=== PATIENT | female | born 1945 | race Caucasian/White ===

== ENCOUNTER 2020-10-11 14:44 | Outpatient (CLI) | payer OTHER, SELFPAY ==
--- NOTE | ~2020-10-11 | MM_ITS ---
EXAMINATION: MM screening [facility] BI w lauren HISTORY: Screening mammogram TECHNIQUE: Craniocaudal and mediolateral oblique 3-D tomosynthesis images were obtained and synthetic 2-D images were generated. CAD analysis was submitted and interpreted. COMPARISON: 03/05/2019, 10/07/2017, 03/08/2016 BREAST PARENCHYMAL COMPOSITION: There are scattered areas of fibroglandular density. FINDINGS: Scattered benign-appearing calcifications are present. There is no evidence of suspicious m ass, calcification, or architectural distortion to suggest malignancy in either breast. There has bee n no suspicious interval change. IMPRESSION: 1. No mammographic evidence of malignancy. 2. Recommend routine screening mammography in one year. BI-RADS Category 2: Benign finding(s). Reviewed, dictated and finalized at location A. EAU REPORT DEVELOPER
== END 2020-10-11 14:45 | disposition home or self-care (01) ==
PROVIDERS: PCP Emergency Medicine; Visit Provider Obstetrics & Gynecology
DX: Z12.31 Encounter for screening mammogram for malignant neoplasm of breast (principal)
CPT/HCPCS: 77063; 77067

== ENCOUNTER 2022-06-29 09:31 | Outpatient (CLI) | payer OTHER, SELFPAY ==
--- NOTE | ~2022-06-29 | MM_ITS ---
EXAMINATION: MM screening [facility] BI w lauren HISTORY: Screening mammogram TECHNIQUE: Craniocaudal and mediolateral oblique 3-D tomosynthesis images were obtained and synthetic 2-D images were generated. CAD analysis was submitted and interpreted. COMPARISON: 10/11/2020, 03/05/2019, 09/27/2017 bilateral screening mammogram examinations BREAST PARENCHYMAL COMPOSITION: There are scattered areas of fibroglandular density. FINDINGS: There are scattered bilateral benign calcifications. There is no evidence of suspicious mas s, calcification, or architectural distortion to suggest malignancy in either breast. There has been no suspicious interval change. IMPRESSION: 1. No mammographic evidence of malignancy. 2. Recommend routine screening mammography in one year. BI-RADS Category 2: Benign finding(s). Reviewed, dictated and finalized at location A. E TECHNICIAN
--- NOTE | ~2022-06-29 | XR_ITS ---
EXAMINATION: XR lumbar spine 2-3V DATE: 06/29/2022 10:18 INDICATION: Unspecified osteoarthritis TECHNIQUE: Anteroposterior and lateral views of the lumbar spine, and cone-down lateral view of the l umbosacral junction were obtained. COMPARISON: None. FINDINGS: There are 4 mm of anterolisthesis of L4 on L5. There is no fracture. The vertebral body hei ghts are normal. There is severe loss of intervertebral disc space height at L5-S1. There is severe f acet joint osteoarthritis of the lower lumbar spine. Phleboliths are noted in the pelvis. There is mo derate osteoarthritis of the hips. A moderate volume of colonic stool is present. Small degenerative osteophytes project from the anterior endplates of multiple vertebral bodies. IMPRESSION: 1. Severe lumbar spondylosis at L5-S1 and mild spondylosis throughout the remainder of the lumbar spi ne without acute findings. Reviewed, dictated and finalized at location B. GE FISHERMAN IMPRESSION: 1. Severe lumbar spondylosis at L5-S1 and mild spondylosis throughout the remai nder of the lumbar spine without acute findings.
== END 2022-06-29 09:32 | disposition home or self-care (01) ==
LOC: ANHIMG 09:32
PROVIDERS: PCP Emergency Medicine; Visit Provider Emergency Medicine
DX: Z12.31 Encounter for screening mammogram for malignant neoplasm of breast (principal); M47.897 Other spondylosis, lumbosacral region
CPT/HCPCS: 72100; 77063; 77067

== ENCOUNTER 2022-08-02 15:15 | Outpatient (RCR) | payer OTHER, SELFPAY ==
--- NOTE | 2022-07-25 09:59 | PTOPEVAL1 ---
Assessment and note entered by Katie Julien, PT Evaluation Information Assessment Status Evaluation Diagnosis osteoarthritis--lumbar & hips Onset 3-4 months ago Subjective Information gradual increase in back pain over time; no trauma or injury to back but do lift husbands' w/c into the car, full w/c with armrests; does not do any fitness exercises or back stretches; Reported Pain Level Pain Score Self Report Additional Pain Score Comments pain range 0-4/10 in lumbar area; dull pain, at rest--no pain, when go sit to stand feel like have to stand up and stretch before start walking; hard to roll over in bed; is able to sleep through the night; sleep on back or sides, have CPAP; decrease pain by moving around, ibuprofen PRN; have not used heat/ice--instructed to use heat PRN ; walking is OK; Assessment PT Clinical Summary Patsy has the diagnosis of OA- lumbar spine and hips. --per xray report: severe facet OA, anterolisthesis L 4 on 5 and decreased disc height , and mod OA hips. She reports issues with back pain, increased few months ago. She has been lifting her 's w/c in/out of the car and she does not do any fitness exercises or stretches . Self assessment Oswestry score of 20% limitation in activity level. With the evaluation, she has poor posturing of her trunk and hips--in standing and sitting; weakness throughout trunk and hips. Flexibility with decreased B hip IR and R piriformis tightness. Skilled PT services are indicated for modalities PRN for pain control, therapeutic exercises to increase strength and flexibility of trunk and hips, with education for HEP and posture, and pain management. And to include lifting education-- for her 's w/c into car. Plan of Care Interventions Electrical Stimulation,Hot Pack/Cold Pack,Manual Therapy,Neuro Re-education,Patient/Caregiver Education,Therapeutic Activities,Therapeutic Exercise,Ultrasound PT Services Indicated Yes Treatment Frequency and 2x/wk for 4 weeks Duration These treatments will address the objective and functional deficits as defined above. The patient will be advanced safely and appropriately in order for the patient to progress towards his/her prior level of function. Additional exercises will be introduced and as well as a comprehensive home exercise program upon discharge, if needed, ?to ensure carryover of functional gains achieved in the clin
--- NOTE | 2022-08-10 10:39 | PCPTNOTE ---
pt did not show for today's appt
--- NOTE | 2022-09-17 10:31 | PCPTNOTE ---
PHYSICAL THERAPY DISCHARGE 09-17-22 Attending Provider: Levi Ferrer MD Patient:Patsy Bhandari Date of :1945 Mrs. Bhandari has not returned for any further treatments since 08/02/2022, therefore she will be discharged at this time. She received 3 PT sessions, from July 25 to , for the diagnosis of arthritis of lumbar and hips. She then stopped attending. The goals were not addressed. Thank you for referring Patsy to [facility].
== END 2022-09-18 09:09 | disposition home or self-care (01) ==
LOC: ANHPT 15:15
PROVIDERS: PCP Emergency Medicine; Visit Provider Emergency Medicine
DX: M19.90 Unspecified osteoarthritis, unspecified site (principal)
CPT/HCPCS: 97110; 97161

== ENCOUNTER 2024-10-21 11:19 | Outpatient (CLI) | payer OTHER, SELFPAY ==
--- NOTE | ~2024-10-21 | XR_ITS ---
XR hip RT min 2V Ordering provider: Levi Ferrer MD History: . M25.551 - Pain in right hip/NONTRAUMA PAIN . Comparison: None. FINDINGS: BONES: No acute fracture or dislocation. Lucency and irregularity in the greater trochanter is seen most likely degenerative. HIP JOINT SPACES: Slight narrowing of the joint space. SACROILIAC JOINT SPACES/LUMBAR SPINE: The sacroiliac joint spaces are normal. Mild degenerative steele es of the visualized lower lumbar spine. PUBIC SYMPHYSIS: Normal. SOFT TISSUES: Normal. IMPRESSION: No definite acute osseous abnormality pelvis and right hip. Lucency in the greater trochanter most li jessica degenerative. Follow-up advised. Mild to moderate osteoarthritic changes of the right hip. Reviewed, dictated and finalized at location A. ENTRY PROCESSOR IMPRESSION: No definite acute osseous abnormality pelvis and right hip. Lucency in the grea ter trochanter most likely degenerative. Follow-up advised. Mild to moderate osteoarthritic changes of the right hip.
--- NOTE | ~2024-10-21 | XR_ITS ---
3 VIEWS LUMBAR SPINE Ordering provider: Levi Ferrer MD History: . M54.50 - Low back pain, unspecified/NONTRAUMA PAIN . Comparison: None. FINDINGS: VERTEBRAL BODIES: No visible fracture or subluxation. Degenerative changes of the spine. DISK SPACES: Narrowing of the disc L4-L5 and L5-S1.. Joint disease at the level of L5-S1. Bilateral sacroiliitis. SOFT TISSUES: Atherosclerotic changes of the aorta. IMPRESSION: No acute osseous abnormality lumbar spine. Degenerative disc disease at the level of L4-L5 and L5-S1. Reviewed, dictated and finalized at location A. BONDER
== END 2024-10-21 11:20 | disposition home or self-care (01) ==
PROVIDERS: PCP Emergency Medicine; Visit Provider Emergency Medicine
DX: M51.369 Other intervertebral disc degeneration, lumbar region without mention of lumbar back pain or lower extremity pain (principal); M51.370 Other intervertebral disc degeneration, lumbosacral region with discogenic back pain only; M16.11 Unilateral primary osteoarthritis, right hip
CPT/HCPCS: 72100; 73502

== ENCOUNTER 2025-02-05 13:29 | Outpatient (CLI) | payer OTHER, SELFPAY ==
--- NOTE | ~2025-02-05 | MM_ITS ---
EXAMINATION: MM screening [facility] BI w lauren HISTORY: Screening TECHNIQUE: Craniocaudal and mediolateral oblique 3-D tomosynthesis images were obtained and synthetic 2-D images were generated. CAD analysis was submitted and interpreted. COMPARISON: Comparison to multiple prior studies sequentially, with oldest reviewed study dated Edgar rison to multiple prior studies sequentially, with oldest reviewed study dated 03/08/2016. . BREAST PARENCHYMAL COMPOSITION: Not dense: There are scattered areas of fibroglandular density. FINDINGS: There is no evidence of suspicious mass, calcification, or architectural distortion to sugg est malignancy in either breast. There has been no suspicious interval change. IMPRESSION: 1. No mammographic evidence of malignancy. 2. Recommend routine screening mammography in one year. BI-RADS Category 1: Negative Reviewed, dictated and finalized at location A.
--- NOTE | ~2025-02-05 | DEXA_ITS ---
Bone Density Report Name: PAGE LAY Age: 80 Sex: Female Ethnicity: White Date of : 1945 Indication: hyperparathyroidism; hysterectomy; Referring Provider: KEYON ABBOTT Study: Bone densitometry was performed. Exam Date: February 05, 2025 Accession number: [id number] Bone Density: Region BMD T-score Z-score Classification AP Spine(L1-L4) 1.084 0.3 3.0 Normal Femoral Neck (Left) 0.752 -0.9 1.4 Normal Total Hip (Left) 0.953 0.1 2.1 Normal Femoral Neck (Right) 0.761 -0.8 1.5 Normal Total Hip (Right) 0.932 -0.1 1.9 Normal Total Hip Mean 0.942 0.0 2.0 Normal World Health Organization criteria for BMD impression classify patients as: Normal (T-score at or above -1.0), Osteopenia (T-score between -1.0 and -2.5), or Osteoporosis (T-score at or below -2.5). 10-year Fracture Risk: FRAX not reported because: All T-scores for Spine Total, Hip Total, Femoral Neck at or above -1.0 Previous Exams: Region Exam Age BMD T-score BMD Change BMD Change Date g/cm2 vs Baseline vs Previous Total Hip(Left) 02/05/2025 80 0.953 0.1 0.047 (5.2%)# 0.015 (1.6%) 03/05/2019 74 0.938 0.0 0.032 (3.6%)# 0.026 (2.9%) 03/08/2016 71 0.911 -0.3 0.006 (0.7%)# 0.006 (0.7%)# 01/19/2014 69 0.905 -0.3 Total Hip(Right) 02/05/2025 80 0.932 -0.1 0.048 (5.4%)# -0.034 (-3.5%) 03/05/2019 74 0.966 0.2 0.081 (9.2%)# 0.063 (7.0%)* 03/08/2016 71 0.903 -0.3 0.018 (2.1%)# 0.018 (2.1%)# 01/19/2014 69 0.885 -0.5 *Denotes significance at 95% confidence level, LSC for Total Hip = 0.027 g/cm2 # Denotes dissimilar scan types or analysis methods Clinical Information Provided by Patient: Has used the following medications: Vitamin D, Calcium Has the following medical conditions: Hyperparathyroidism, Hysterectomy Patient maximum height was 63 No regular weight bearing exercise Onset of menses at age 14 Number of children 3 Impression: The patient has normal bone mass. The BMD for the Total Hip(Right) decreased, changing by -3.5% since the last DXA exam. Discussion: BONE DENSITY IS ABOVE THE MINIMUM DESIRABLE LEVEL AT ALL SKELETAL SITES TESTED. This patient?s bone mineral density is above the minimum desirable level (T-score -1.0 or better) at all sites measured. The patient should follow a healthful lifestyle (good nutrition with adequate calcium and vitamin D, and appropriate weight-bearing exercise). Follow-Up: Consider repeating this study in 3 to 4 years to reassess this patient's status, or sooner if there is some new clinical indication. Reported by: JOHN on 02/09/2025 8:57:00 AM. Reviewed, dictated and finalized at location A.
== END 2025-02-05 13:30 | disposition home or self-care (01) ==
LOC: ANHIMG 13:33
PROVIDERS: PCP Emergency Medicine; Visit Provider Emergency Medicine
DX: Z12.31 Encounter for screening mammogram for malignant neoplasm of breast (principal); Z78.0 Asymptomatic menopausal state; E55.9 Vitamin D deficiency, unspecified
CPT/HCPCS: 77063; 77067; 77080